=== PATIENT | female | born 1965 | race Caucasian/White ===

== ENCOUNTER 2019-08-06 19:42 | Emergency (ER) | payer BC ==
[2019-08-06] MEDS ORDERED: ACETAMINOPHEN 1,000 MG/100 ML BTL IVPB ONE (20:34)
[2019-08-06] MEDS ORDERED: ONDANSETRON HCL IV 4 MG/2 ML VIAL IV ONE (20:34)
--- NOTE | 2019-08-06 20:38 | Emergency Department Record ---
History of Present Illness - General Chief Complaint: Back Pain/Injury Stated Complaint: BACK PAIN Time Seen by Provider: 08/06/19 19:52 Source: Patient, Family Mode of Arrival: Ambulatory Limitations: No limitations - History of Present Illness Initial Comments: The patient is here due to worsening of her chronic R back pain. The patient states she has a long hx of chronic pain and did have a facet injection this AM by Dr. Roche. She went to sleep after and 5 hours ago after waking up felt worse pain in the R lower back. The pain is a sharp shooting pain that does radiate down the R leg and is associated with R leg numbness and slight weakness. She also is complaining of mild symptoms of urine retention and states she is having trouble starting to urinate when she sits on the toilet. She additionally has a hx of Stage 4 kidney dz but denies any anticoagulant use. MD Complaint: Back pain Onset/Timin -: Hour(s) Similar Symptoms Previously: Yes Place: Home Radiation: Right leg Severity scale (1-10): 10 Consistency: Constant, Getting worse Worsens With: Movement, Walking Associated Symptoms: Denies other symptoms Treatments Prior to Arrival: Other medications, Prescription analgesics Treatment Prior to Arrival Comment:: Teik[employer] and [employer]- - Related Data Home Medications Medication Instructions Recorded Confirmed Last Taken Diazepam 5 mg PO ASDIR 08/06/19 08/06/19 Unknown Allergies Allergy/AdvReac Type Severity Reaction Status Date / Time hydromorphone HCl Allergy Severe NAUSEA AND Verified 08/06/19 20:08 [From Dilaudid] VOMITING Penicillins AdvReac Intermediate DIARRHEA Verified 08/06/19 20:08 Travel Screening - Travel/Exposure Within Last 30 Days Have you traveled within the last 30 days?: No - Travel/Exposure Within Last Year Have you traveled outside the [place] in the last year?: No - Additonal Travel Details Have you been exposed to anyone with a communicable illness?: No - Travel Symptoms Symptom Screening: None Review of Systems Constitutional: Denies: Chills, Fever Eyes: Denies: Eye discharge ENT: Denies: Congestion Respiratory: Denies: Cough, Dyspnea Past Medical History - SOCIAL HISTORY Smoking Status: Never smoker Alcohol Use: None Drug Use: None - RESPIRATORY Hx Respiratory Disorders: Yes Hx Asthma: Yes (exercise induced) - CARDIOVASCULAR Hx Cardio Disorders: Yes Hx Hypertension: Yes - NEURO Hx Neuro Disorders: Yes Hx Headaches: Yes Hx of Migraines: Yes Hx Neuropathy: Yes Comment:: neuropathy hands ,toes - GI Hx GI Disorders: Yes Hx Irritable Bowel: Yes - Hx Genitourinary Disorders: Yes Hx Renal Disease: Yes ([id number]) - ENDOCRINE Hx Endocrine Disorders: Yes Hx Thyroid Disease: Yes (low) - MUSCULOSKELETAL Hx Musculoskeletal Disorders: Yes Hx Arthritis: Yes (mild osteoarthritis) Hx Fibromyalgia: Yes - PSYCH Hx Psych Problems: Yes Hx Anxiety: Yes - HEMATOLOGY/ONCOLOGY Hx Hematology/Oncology Disorders: Yes Hx Anemia: Yes Family Medical History Any Significant Family History?: No Hx Cancer: Father, Mother Physical Exam - General General Appearance: Alert, Oriented x3, Cooperative, No acute distress - Head Head exam: Atraumatic, Normocephalic, Normal inspection - Eye Eye exam: Normal appearance, PERRL - ENT Throat exam: Normal inspection. negative: Tonsillar erythema, Tonsillar exudate - Neck Neck exam: Normal inspection, Full ROM. negative: Tenderness - Respiratory Respiratory exam: Normal lung sounds bilaterally. negative: Respiratory distress - Cardiovascular Cardiovascular Exam: Regular rate, Normal rhythm, Normal heart sounds - GI/Abdominal GI/Abdominal exam: Soft, Normal bowel sounds. negative: Tenderness - Extremities Extremities exam: Normal inspection, Full ROM, Normal capillary refill. negative: Tenderness - Back Back exam: Reports: Normal inspection, Paraspinal tenderness (R SI area.). Denies: Vertebral tenderness - Neurological Neurological exam: Abnormal gait (The patient is able to ambulate with a mild limp due to R leg and back pain.), Alert, Motor sensory deficit (There is slight motore weakness 4+/5 to the entire R leg due to pain. There is a mild Pos. SLR on the R to 90 degrees. There is decreased sensation to the R lower leg on light touch laterally. ), Oriented X3, Reflexes normal. negative: Altered, Normal gait - Skin Skin exam: negative: Rash Course Vital Signs 08/06/19 20:28 Temperature 98.5 F Pulse Rate [ 99 H Pulse Ox Probe] Respiratory 20 Rate Blood Pressure 124/65 [Left Arm] Pulse Ox 97 - Reevaluation(s) Reevaluation #1: The patient is doing much better at this time. Her pain is much improved and she is up walking normally with no limping or leg weakness. Due to the nature of the patient's complaints and after having the facet injections today I did recommend transfer to a larger hospital for an MRI to R/O spinal hematoma. The patient is refusing that plan and would like to go home. I did explain to the patient and the risks of NOT getting the MRI tonight are that the patient could go home and have worsening symptoms that could lead to permanent leg numbness, weakness, bowel or bladder issues, difficulty walking and worsening chronic pain. The patient and fully understand and accept the risks of refusing and understand we cannot be held liable for NOT obtaining the MRI. They fully accept the risks of leaving and the risks of permanent disability and pain. Presently the patient has proper decision making capacity and will call her doctor on Friday for recheck. 08/06/19 22:36 Medical Decision Making - Data Complexity MDM Data: Labs Ordered and/or Reviewed - Lab Data Result diagrams: 08/06/19 20:55 08/06/19 20:55 Disposition Disposition: Discharge Clinical Impression: Chronic low back pain Qualifiers: Back pain laterality: unspecified Sciatica presence: unspecified whether sciatica present Qualified Code(s): M54.5 - Low back pain Disposition: Home, Self-Care Condition: (2) Stable Instructions: Chronic Back Pain (ED) Additional Instructions: Please continue your regular pain medicines and please see your family doctor on Friday for recheck. Return to the ER for any worsening symptoms, worsening pain, fever, incontinence, leg weakness or urine retention. Forms: Patient Portal Access Time of Disposition: 22:36 Quality - Quality Measures Quality Measures: N/A - Blood Pressure Screening View Details: Yes Does Patient Have Any of the Following: No Blood Pressure Classification: Pre-Hypertensive BP Reading Systolic Measurement: 124 Diastolic Measurement: 65 Screening for High Blood Pressure: < Pre-Hypertensive BP, F/U Documented > [[id number]] Pre-Hypertensive Follow-up Interventions: Referral to alternative/primary care provider.
[2019-08-06] MEDS ORDERED: 0.9 % SODIUM CHLORIDE 1,000 ML BAG IV ONE (20:57)
[2019-08-06 21:02] LABS: HEMATOCRIT 42.2 % (35.0-47.0); HEMOGLOBIN 13.2 gm/dl (11.6-16.0); MEAN CELL VOLUME 96.3 fl (81-97); MEAN CORPUSCULAR HEMOGLOBIN 30.1 pg (27-33); MEAN CORPUSCULAR HGB CONC 31.3 g/dl (32-36); MEAN PLATELET VOLUME 8.8 fl (7.4-10.4); PLATELET COUNT 403 K/uL (130-400); RED BLOOD COUNT 4.38 M/uL (3.80-5.40); RED CELL DISTRIBUTION WIDTH 13.8 % (11.5-14.5); WHITE BLOOD COUNT W/O DIFF 6.5 K/uL (4.2-12.2)
[2019-08-06 21:15] LABS: CREATININE 1.5 mg/dL (0.5-0.9)
[2019-08-06] MEDS ORDERED: MORPHINE SULFATE 5 MG/ML VIAL IVP ONE ×2 (21:29→22:10)
== END 2019-08-06 22:50 | disposition home or self-care (01) ==
LOC: ER 19:42
DX: G89.29 Other chronic pain (principal); M54.5 Low back pain; R33.9 Retention of urine, unspecified; R20.0 Anesthesia of skin; I12.9 Hypertensive chronic kidney disease with stage 1 through stage 4 chronic kidney disease, or unspecified chronic kidney disease; N18.4 Chronic kidney disease, stage 4 (severe)
CPT/HCPCS: 80048; 85027; 96374; 96375; 96376; 99284; J2405; J7030